=== PATIENT | male | born 1960 | race Caucasian/White ===

== ENCOUNTER 2022-01-03 05:18 | Inpatient (IN) | payer BC, MEDICARE ==
[2022-01-02 11:02] LABS: BASOPHILS % (AUTO) 0.8 % (0-1); EOSINOPHILS # (AUTO) 0.2 X10'3 (0-0.9); EOSINOPHILS % (AUTO) 4.2 % (0-6); LYMPHOCYTES # (AUTO) 1.1 X10'3 (1.1-4.8); LYMPHOCYTES % (AUTO) 22.5 % (21-51); MEAN CORPUSCULAR HEMOGLOBIN 29.9 PG (27.0-31.0); MEAN CORPUSCULAR HGB CONC 33.2 g/dL (33.0-36.5); MEAN PLATELET VOLUME 8.6 FL (7.4-10.4); MONOCYTES # (AUTO) 0.4 X10'3 (0-0.9); MONOCYTES % (AUTO) 7.8 % (2-12); NEUTROPHILS # (AUTO) 3.3 X10'3 (1.8-7.7); NEUTROPHILS % (AUTO) 64.7 % (42-75); PRE OP HEMATOCRIT 43.4 % (42.0-52.0); PRE OP HEMOGLOBIN 14.4 g/dL (14.0-17.9); PRE OP PLATELET COUNT 243 X10'3 (140-440); RED BLOOD COUNT 4.82 X10'6 (4.70-6.10); RED CELL DISTRIBUTION WIDTH 15.8 % (11.5-14.5)
[2022-01-02 11:16] LABS: ALBUMIN 4.4 G/DL (3.4-5.0); ALBUMIN/GLOBULIN RATIO 1.2 (1.1-1.5); ALKALINE PHOSPHATASE 70 IU/L (46-116); BLOOD UREA NITROGEN 23 MG/DL (7-18); CALCIUM 9.8 MG/DL (8.5-10.1); CHLORIDE 104 MMOL/L (99-107); CREATININE 1.28 MG/DL (0.60-1.10); PRE OP ANION GAP 10 (8-16); PRE OP AST 42 U/L (10-37); PRE OP BILIRUB, TOTAL 0.6 MG/DL (0.0-1.0); PRE OP GLUCOSE 116 MG/DL (70-104); PRE OP SODIUM 141 MMOL/L (135-145); TOTAL CARBON DIOXIDE 27.1 MMOL/L (24-32); TOTAL PROTEIN 8.1 G/DL (6.4-8.2); eGFR 57 ML/MIN
[2022-01-02 11:26] LABS: PRE OP ALT 110 U/L (30-65)
[~2022-01-03] VITALS: Ht 162.6 cm; Wt 96.2 kg
[2022-01-03] VITALS (19 sets, daily range): BP systolic 103–148; BP diastolic 62–90
[~2022-01-03 05:18] MED LIST: ALLO300T8 PO; AMLO10TA13 PO; COLC0.6T72 PO; CYCL5TAB PO; DESV100T16 PO; FENO54TA PO; FERR324T PO; GABA300C PO; INDO50CA96 PO; LORA10TA7 PO; LOSA1TAB41 PO; MELO-100 PO; OMEP20CA16 PO; POTA8CAP20 PO; QUERCETIN; VIT C; VITAMIN D3; ZINC; [UNRECOGNIZED DRUG - OTHER]
[2022-01-03] MEDS ORDERED: vancomycin 1,500 MG in NS 300ml IV soln IV ONE (05:30)
[2022-01-03] MEDS ORDERED: oxyCODONE SR 10mg (sust. release) tab -2 tabs (20mg) PO ONE (05:30)
[2022-01-03] MEDS ORDERED: famotidine 20mg tablet PO ONE (05:30)
[2022-01-03] MEDS ORDERED: ceFAZolin inj. 2,000 MG in dextrose 5%-water 100 ML IV ONE (05:30)
--- NOTE | 2022-01-03 05:30 | NUR ---
CSM: PULSES PRESENT AND MARKED. PATIENT STATES THEY READ THE PAMPHLET, BUT WAS NOT AWARE OF MUPIROCIN CREAM. EDUCATED PATIENT ON THE USE OF THE INCENTIVE SPIROMETER AND ITS IMPORTANCE.
[2022-01-03] MEDS: ringers solution, lacted 1,000 ML IV SCH ×2 (06:21→11:09)
[2022-01-03] MEDS ORDERED: ketorolac trometh. 30mg/ml inj. ONE (06:43)
[2022-01-03] MEDS ORDERED: epiNEPHrine 1 mg/ml inj ONE (06:43)
[2022-01-03] MEDS ORDERED: cloNIDine hcl/PF 100mcg/ml inj ONE (06:43)
[2022-01-03] MEDS ORDERED: vancomycin 1,000mg inj ONE (06:43)
[2022-01-03] MEDS ORDERED: ROPIVAcaine 0.5% (5mg/ml) 30ml vial ONE (06:43)
[2022-01-03] MEDS ORDERED: MIDAZolam 1mg/ml 10ml vial ONE (06:54)
[2022-01-03] MEDS ORDERED: hydrALAZINE 20mg/ml inj. IV PRN (07:05)
[2022-01-03] MEDS ORDERED: ringers solution, lacted 1,000 ML IV SCH (07:05)
[2022-01-03] MEDS ORDERED: ondansetron/PF 4mg/2ml inj IV PRN ×2 (07:05→07:20)
[2022-01-03] MEDS ORDERED: fentaNYL/PF 50MCG/1 ML 2ML syringe IV PRN (07:05)
[2022-01-03] MEDS ORDERED: labetalol 20mg/4ml (5mg/ml) syringe IV PRN (07:05)
[2022-01-03] MEDS ORDERED: morphine 2 MG/ML inj. syringe IV PRN (07:05)
[2022-01-03] MEDS ORDERED: dexamethasone sod phosphate 10mg/ml inj ONE (07:07)
[2022-01-03] MEDS ORDERED: sevoflurane 250ml liquid IH ONE (07:07)
[2022-01-03] MEDS ORDERED: bisacodyl 10mg suppository rectal RC PRN (07:20)
[2022-01-03] MEDS ORDERED: HYDROmorphone inj. 0.5 MG/0.5 ML DISP.SYRIN IV PRN (07:20)
[2022-01-03] MEDS ORDERED: HYDROcodone/acetaminophen 10/325mg tab PO PRN (07:20)
[2022-01-03] MEDS ORDERED: HYDROmorphone 1 mg/ml syringe IV PRN (07:20)
[2022-01-03] MEDS ORDERED: naloxone 0.4 mg/ml inj IV PRN (07:20)
[2022-01-03] MEDS ORDERED: magnesium hydroxide 30ml (MOM) UD suspension PO PRN (07:20)
[2022-01-03] MEDS: potassium cl 20mEq in 1/2 NS 1,000 ML IV SCH ×3 (07:20→23:49)
[2022-01-03] MEDS ORDERED: diphenhydrAMINE 25mg capsule PO PRN ×2 (07:20)
[2022-01-03] MEDS ORDERED: acetaminophen 325mg tablet PO PRN (07:20)
[2022-01-03] MEDS: gabapentin 300mg capsule PO SCH ×3 (08:00→19:40)
[2022-01-03] MEDS: ascorbic acid 500mg tablet PO SCH ×2 (08:00→19:40)
[2022-01-03] MEDS ORDERED: succinylcholine 20mg/ml inj IV ONE (08:07)
[2022-01-03] MEDS ORDERED: LIDOcaine 1%/PF 5ML 10 MG/ML VIAL ONE (08:07)
[2022-01-03] MEDS ORDERED: propofol inj 20 ML IV ONE (08:07)
[2022-01-03] MEDS ORDERED: ePHEDrine 50MG/ML INJ. ONE (08:07)
[2022-01-03] MEDS ORDERED: fentaNYL/PF 50MCG/1 ML 2ML syringe ONE ×3 (08:07→08:30)
[2022-01-03] MEDS ORDERED: LIDOcaine 2% (20mg/ml) 5ml vial ONE (08:07)
[2022-01-03] MEDS ORDERED: ondansetron/PF 4mg/2ml inj ONE (08:29)
--- NOTE | 2022-01-03 09:23 | NUR ---
Received from OR via BED , accompanied by Anesthesiologist NIKOLE and report given by Anesthesiolgist. PATIENT WITH 20G PIV IN RIGHT UE. VSS AT THIS TIME. LEFT HIP DRESSING IS CDI AND KNEE IMMOBILIZER ON . + DP PRESENT TO LEFT FOOT. 10L MASK ON WITH 100% SATURATIONS. SCDS DONNED. Addendum: 01/03/22 at 0940 by Shade Rodriguez RN, RN Amended: Links added.
[2022-01-03] MEDS: morphine 4 MG/ML inj SYRINge IV PRN ×2 (09:44→11:10)
[2022-01-03] MEDS: fentaNYL/PF 50MCG/1 ML 2ML syringe IV PRN ×2 (09:58→11:10)
--- NOTE | 2022-01-03 10:14 | NUR ---
Patient in room . I have received report from [facility] and had the opportunity to ask questions and assume patient care.
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
[2022-01-03 11:36] LABS: BASOPHILS % (AUTO) 0.3 % (0-1); EOSINOPHILS % (AUTO) 0.5 % (0-6); LYMPHOCYTES # (AUTO) 0.7 X10'3 (1.1-4.8); LYMPHOCYTES % (AUTO) 7.2 % (21-51); MEAN PLATELET VOLUME 8.7 FL (7.4-10.4); MONOCYTES # (AUTO) 0.2 X10'3 (0-0.9); MONOCYTES % (AUTO) 2.3 % (2-12); NEUTROPHILS # (AUTO) 8.4 X10'3 (1.8-7.7); NEUTROPHILS % (AUTO) 89.7 % (42-75); PLATELET COUNT 188 X10'3 (140-440); WHITE BLOOD COUNT 9.4 X10'3 (4.5-11.0)
[2022-01-03 11:52] LABS: CHLORIDE 105 MMOL/L (99-107); POTASSIUM 4.2 MMOL/L (3.5-5.1); SODIUM 138 MMOL/L (135-145)
[2022-01-03] MEDS ORDERED: cyclobenzaprine 10mg tablet PO PRN (12:00)
[2022-01-03 12:06] LABS: ANION GAP 12 (8-16); TOTAL CARBON DIOXIDE 20.6 MMOL/L (24-32)
[2022-01-03 12:30] LABS: HEMATOCRIT 37.2 % (42.0-52.0); HEMOGLOBIN 12.8 g/dl (14.0-17.9); MEAN CORPUSCULAR HEMOGLOBIN 31.4 PG (27.0-31.0); MEAN CORPUSCULAR HGB CONC 34.4 g/dL (33.0-36.5); RED BLOOD COUNT 4.09 X10'6 (4.70-6.10); RED CELL DISTRIBUTION WIDTH 15.3 % (11.5-14.5)
[2022-01-03] MEDS ORDERED: NORMAL SALINE IV ONE ×2 (12:30→15:00)
[2022-01-03] MEDS ORDERED: TRANEXAMIC ACID IV ONE ×2 (12:30→15:00)
--- NOTE | 2022-01-03 13:20 | NUR ---
WAITING ON TRANEXAMIC FROM PHARMACY, THEN WILL HANG.
[2022-01-03] MEDS: HYDROcodone/acetaminophen 10/325mg tab PO PRN ×2 (13:48→19:48)
--- NOTE | 2022-01-03 14:02 | NUR ---
pharmacy said that they have a new pharmacist and they are having testing for IVs and thats why they are behind. they only have one dahl to prepare IV stuff and its in use. pharmacy just called and said that there are no new orders for the tranexamic, i need to call miles and get these from him if he still wants it.
[2022-01-03] MEDS: cefazolin/dext.iso 2gm/100ml 100 ML IV SCH (16:30)
--- NOTE | 2022-01-03 17:47 | NUR ---
post op vitals completed
--- NOTE | 2022-01-03 18:32 | NUR ---
Problems reprioritized. Patient report given, questions answered & plan of care reviewed with stephanie wekes.
--- NOTE | 2022-01-03 18:35 | NUR ---
Patient in room ORTHO 4012. I have received report from Jono MOMIN and had the opportunity to ask questions and assume patient care. Addendum: 01/03/22 at 2340 by Dulce Mora RN Amended: Links added.
[2022-01-03] MEDS: ferrous gluconate 324mg tablet PO SCH (19:40)
[2022-01-03] MEDS: celeCOXIB 100mg capsule PO SCH (19:40)
[2022-01-03] MEDS: loratadine 10mg tablet PO SCH (19:40)
--- NOTE | 2022-01-03 20:00 | NUR ---
Pt. awake A & O x 4 c/o pain at this time medicated as ordered. No c/o SOB. Lt. hip with BARBY drsg CDI intact at this time- CMS present at this time. Call light within reach and bed in low position. Addendum: 01/04/22 at 0652 by Dulce Mora RN Amended: Links added.
[2022-01-04] MEDS: cefazolin/dext.iso 2gm/100ml 100 ML IV SCH
[2022-01-04] MEDS: HYDROcodone/acetaminophen 10/325mg tab PO PRN ×2 (00:10→05:39)
--- NOTE | 2022-01-04 06:05 | NUR ---
Problems reprioritized. Patient report given, questions answered & plan of care reviewed with Fariba MOMIN. Addendum: 01/04/22 at 0706 by Dulce Mora RN Amended: Links added.
[2022-01-04 06:14] LABS: BASOPHILS % (AUTO) 0.1 % (0-1); EOSINOPHILS % (AUTO) 0.1 % (0-6); HEMATOCRIT 35.2 % (42.0-52.0); HEMOGLOBIN 11.7 g/dl (14.0-17.9); LYMPHOCYTES # (AUTO) 0.9 X10'3 (1.1-4.8); LYMPHOCYTES % (AUTO) 8.5 % (21-51); MEAN CORPUSCULAR HEMOGLOBIN 30.3 PG (27.0-31.0); MEAN CORPUSCULAR HGB CONC 33.1 g/dL (33.0-36.5); MEAN CORPUSCULAR VOLUME 91.5 FL (78-98); MEAN PLATELET VOLUME 8.8 FL (7.4-10.4); MONOCYTES # (AUTO) 0.9 X10'3 (0-0.9); MONOCYTES % (AUTO) 8.2 % (2-12); NEUTROPHILS # (AUTO) 9.2 X10'3 (1.8-7.7); NEUTROPHILS % (AUTO) 83.1 % (42-75); PLATELET COUNT 239 X10'3 (140-440); RED BLOOD COUNT 3.85 X10'6 (4.70-6.10); RED CELL DISTRIBUTION WIDTH 15.6 % (11.5-14.5); WHITE BLOOD COUNT 11.1 X10'3 (4.5-11.0)
[2022-01-04 07:20] VITALS: BP 122/70
[2022-01-04] MEDS ORDERED: Chloraseptic (Phenol) Spray 177ml MM PRN (07:40)
[2022-01-04] MEDS ORDERED: amLODIPine 5mg tablet PO SCH (08:00)
[2022-01-04] MEDS ORDERED: fenofibrate 48mg tablet PO SCH (08:00)
[2022-01-04] MEDS: loratadine 10mg tablet PO SCH (08:00)
[2022-01-04] MEDS ORDERED: potassium chloride 8mEq ER tablet PO SCH (08:00)
[2022-01-04] MEDS ORDERED: colchicine 0.6mg tablet PO SCH (08:00)
[2022-01-04] MEDS ORDERED: pantoprazole 40mg Tablet.DR PO SCH (08:00)
[2022-01-04] MEDS ORDERED: multivitamins, therapeutics tablet PO SCH (08:00)
[2022-01-04] MEDS ORDERED: HYDROchlorothiazide 12.5mg capsule PO SCH (08:00)
[2022-01-04] MEDS ORDERED: losartan 50mg tablet PO SCH (08:00)
[2022-01-04] MEDS ORDERED: allopurinol 300 MG tablet PO SCH (08:00)
[2022-01-04] MEDS: potassium cl 20mEq in 1/2 NS 1,000 ML IV SCH (08:14)
[2022-01-04] MEDS: celeCOXIB 100mg capsule PO SCH (08:15)
[2022-01-04] MEDS: venlafaxine 25mg tablet PO SCH ×2 (08:17→13:50)
[2022-01-04] MEDS: ferrous gluconate 324mg tablet PO SCH (08:18)
[2022-01-04] MEDS: ascorbic acid 500mg tablet PO SCH (08:18)
[2022-01-04] MEDS: gabapentin 300mg capsule PO SCH ×2 (08:19→13:50)
[2022-01-04] MEDS ORDERED: aspirin 325mg tablet PO SCH (08:30)
[2022-01-04 10:08] VITALS: BP 112/43
[2022-01-04 14:40] VITALS: BP 132/62
--- NOTE | 2022-01-04 16:14 | NUR ---
Patient stable and appropriate for discharge home with . IV removed, all belongings taken from room. No new RX. All discharge instructions and education given and reviewed with patient and Danni, all questions answered. tyler intact, knee brace on.
[2022-01-04] MEDS ORDERED: sennosides 8.6mg tablet PO SCH (21:00)
== END 2022-01-04 16:07 | disposition home or self-care (01) | DRG 470 ==
LOC: PAS 05:18 → ORTHO 4S 07:33
PROVIDERS: ADMIT Orthopaedic Surgery; ATTEND Orthopaedic Surgery
PROC: 5A09357 Assistance with Respiratory Ventilation, Less than 24 Consecutive Hours, Continuous Positive Airway Pressure (ICD-10-PCS; 2022-01-03)
PROC: 0SRB06Z Replacement of Left Hip Joint with Oxidized Zirconium on Polyethylene Synthetic Substitute, Open Approach (ICD-10-PCS; principal; 2022-01-03 07:07)
DX: M16.12 Unilateral primary osteoarthritis, left hip (principal); Z20.822 Contact with and (suspected) exposure to COVID-19; Z79.82 Long term (current) use of aspirin
CPT/HCPCS: 36415; 71046; 72170; 80051; 80053; 82948; 85025; 86885; 86900; 86901; 87081; 97116; 97161; 97530; 97535; A4615; A7000; C1776; G0378; J0171; J0330; J0690; J0735; J1100; J1885; J2250; J2270; J2405; J2704; J2795; J3010; J3370; J3480; J3490; J7040; J7060; J7120